=== PATIENT | female | born 1960 | race Caucasian/White ===

== ENCOUNTER → 2020-07-19 10:08 | Outpatient (CLI) | payer BC, SELFPAY ==
--- NOTE | ~2020-07-19 | MM_ITS ---
EXAMINATION: MM screening [facility] BI w cameron HISTORY: Screening mammogram TECHNIQUE: Craniocaudal and mediolateral oblique 3-D tomosynthesis images were obtained and synthetic 2-D images were generated. CAD analysis was submitted and interpreted. COMPARISON: , 08/28/2006 18 outside mammograms BREAST PARENCHYMAL COMPOSITION: There are scattered areas of fibroglandular density. FINDINGS: There is no evidence of suspicious mass, calcification, or architectural distortion to sugg est malignancy in either breast. There has been no suspicious interval change. IMPRESSION: 1. No mammographic evidence of malignancy. 2. Recommend routine screening mammography in one year. BI-RADS Category 1: Negative Reviewed, dictated and finalized at location A.
--- NOTE | ~2020-07-19 | DEXA_ITS ---
Bone Density Report Name: Katie Cotton Age: 59 Sex: Female Ethnicity: White Date of : 1960 Indication: osteopenia; asthma or emphysema; hysterectomy; postmenopausal Referring Provider: KALLIE GRACIA Study: Bone densitometry was performed. Exam Date: July 19, 2020 Accession number: [id number] Bone Density: Region BMD T-score Z-score Classification AP Spine (L1-L4) 0.912 -1.2 0.0 Osteopenia Femoral Neck (Left) 0.589 -2.3 -1.2 Osteopenia Total Hip (Left) 0.788 -1.3 -0.4 Osteopenia Femoral Neck (Right) 0.577 -2.4 -1.3 Osteopenia Total Hip (Right) 0.827 -0.9 -0.1 Normal Total Hip Mean 0.808 -1.1 -0.3 Osteopenia World Health Organization criteria for BMD impression classify patients as: Normal (T-score at or above -1.0), Osteopenia (T-score between -1.0 and -2.5), or Osteoporosis (T-score at or below -2.5). 10-year Fracture Risk(1): Major Osteoporotic Fracture 10.0% Hip Fracture 1.6% Reported Risk Factors: [place] (), Neck BMD=0.577, BMI=26.4 (1) FRAX(R) Version 3.08. Fracture probability calculated for an untreated patient. Fracture probability may be lower if the patient has received treatment. Previous Exams: Region Exam Age BMD T-score BMD Change BMD Change Date g/cm2 vs Baseline vs Previous AP Spine(L1-L4) 07/19/2020 59 0.912 -1.2 -0.011 -0.011 07/18/2018 57 0.923 -1.1 Total Hip(Left) 07/19/2020 59 0.788 -1.3 -0.039* -0.039* 07/18/2018 57 0.827 -0.9 Total Hip(Right) 07/19/2020 59 0.827 -0.9 0.004 0.004 07/18/2018 57 0.823 -1.0 *Denotes significance at 95% confidence level, LSC for AP Spine = 0.022 g/cm2, LSC for Total Hip = 0.027 g/cm2 Clinical Information Provided by Patient: Has used the following medications: Vitamin D Has the following medical conditions: Asthma or Emphysema, Hysterectomy Patient maximum height was 58.8 Menopause Age: 48 No regular weight bearing exercise Drinks caffeinated beverages Onset of menses at age 17 Number of children 2 Impression: The patient has low bone mass, based on the Right Femoral Neck T-score. The patient has an estimated ten-year risk of hip fracture of 1.6% and an estimated ten-year risk of major fracture of 10%, based on the WHO FRAX algorithm. The BMD for the Total Hip(Left) decreased, changing by -0.039 since the last DXA exam. Discussion: BONE DENSITY IS LOW AT ONE OR MORE SKELETAL SITES.
== END ==
PROVIDERS: Visit Provider Obstetrics & Gynecology Gynecology
DX: Z12.31 Encounter for screening mammogram for malignant neoplasm of breast (principal); Z78.0 Asymptomatic menopausal state; M85.88 Other specified disorders of bone density and structure, other site; M85.851 Other specified disorders of bone density and structure, right thigh; M85.852 Other specified disorders of bone density and structure, left thigh
CPT/HCPCS: 77063; 77067; 77080

== ENCOUNTER → 2021-11-24 10:35 | Outpatient (CLI) | payer BC, SELFPAY ==
--- NOTE | ~2021-11-24 | US_ITS ---
EXAMINATION: US pelvic complete w TV DATE: 11/24/2021 11:30 INDICATION: Right lower quadrant pain. Urinary frequency. Comparison:Ultrasound dated 07/18/2018 TECHNIQUE: Multiple transabdominal and endovaginal sonographic images of the pelvis performed. FINDINGS: The uterus is surgically absent. The right ovary measures 1.9 x 1 x 1.5 cm and the left is not visualized. No adnexal masses. There is no free fluid in the pelvis. There are no abnormal masses seen on either side. IMPRESSION: 1. Unremarkable pelvic ultrasound. Reviewed, dictated and finalized at location B.
== END ==
PROVIDERS: PCP Nurse Practitioner; Visit Provider Nurse Practitioner
DX: R10.11 Right upper quadrant pain (principal); R35.0 Frequency of micturition
CPT/HCPCS: 76830; 76856

== ENCOUNTER 2021-12-30 00:02 | Day surgery (SDC) | payer BC, SELFPAY ==
[2021-12-26 10:21] VITALS: BMI 25.1
[2021-12-30 06:27] VITALS: BP 136/85; PULSE 72; RESP 18; TEMP 36.5; O2SAT 100; BMI 25.7
[2021-12-30] MEDS: LACTATED RINGERS 1,000 ML 150 ML IV CONT (06:43)
--- NOTE | 2021-12-30 07:17 | P.PNAN_ITS ---
Anes - Initial Pre Proc Eval Procedure: Operation Date: 12/30/21 07:30 Proposed Procedures p Screening Colonoscopy - Avelino Carr MD Date/Time: 12/30/21 07:17 Surgeon: Avelino Carr MD Pre Op Diagnosis: family hx colon polyps Patient Data Age: 61 Gender: F Height: 1.5 m Weight: 57.9 kg Last Vital Signs Temp 97.7 F 12/30/21 06:27 Pulse 72 12/30/21 06:27 Resp 18 12/30/21 06:27 BP 136/85 12/30/21 06:27 Pulse Ox 100 12/30/21 06:27 O2 Del Method Room Air 12/30/21 06:27 Allergies Allergy/AdvReac Type Severity Reaction Status Date / Time doxycycline Allergy Mild MOUTH SORES Verified 12/30/21 06:25 Sulfa (Sulfonamide Allergy Mild MOUTH Verified 12/30/21 06:25 Antibiotics) SWELLING/MOUTH SORES Home Medications Medication Instructions Recorded Confirmed Type sodium,potassium,mag sulfates 17.5 See Rx Instructions PO .COMPLEX 10/26/21 12/21/21 Rx gram-3.13 gram-1.6 gram oral soln #354 mL (Suprep Bowel Prep Kit) rosuvastatin 10 mg tablet 10 mg PO DAILY 12/21/21 12/21/21 History Quercetin, Vit C, Bromelain 1 cap PO DAILY 12/26/21 12/26/21 History cholecalciferol (vitamin D3) 125 125 mcg PO DAILY 12/26/21 12/26/21 History mcg (5,000 unit) tablet (Vitamin D3) cyanocobalamin (vitamin B-12) 1,000 mcg PO DAILY 12/26/21 12/26/21 History 1,000 mcg tablet (Vitamin B-12) fexofenadine 180 mg tablet 180 mg PO DAILY 12/26/21 12/26/21 History green tea extract 500 mg capsule 500 mg PO DAILY 12/26/21 12/26/21 History selenium 200 mcg capsule 200 mcg PO DAILY 12/26/21 12/26/21 History zinc 50 mg tablet 50 mg PO DAILY 12/26/21 12/26/21 History Patient hx anesthesia problems: none Family hx anesthesia problems: none Results Review: All pre-operative results and documents have been reviewed as part of the pre- operative evaluation. PMFSH Social History Social History (System 05/12/20 @ 12:51 by Joy Alexandra) Smoking status: Never smoker Alcohol intake: never Substance use: never Substance use type: does not use Living arrangements: with family Spiritual care concerns: No Anes - Eval Final PreProcedure Day of Procedure 12/30/21 07:17 Patient weight: normal Heart: regular rate and rhythm Lungs: clear to auscultation Airway: Mallampati scale class II Neurological: alert and oriented Last oral intake: >/= 8 hours ASA classification: II Emergent: no Anesthetic plan: proceed Anesthesia type and monitoring: general GIVS and standard monitoring Results Review: All pre-operative results and documents have been reviewed as part of the pre- operative evaluation. Informed Consent: The patient's anesthetic plan and its attendant risks and benefits were discussed with the patient/family/POA. Questions were solicited and answers provided to the satisfaction of the patient/family/POA.
--- NOTE | 2021-12-30 07:26 | PM.HPGS ---
History of Present Illness History of Present Illness Consent: Risks, benefits, and alternatives have been discussed and questions answered. Patient agrees to proceed with procedure. Chief complaint: family hx colon polyps Narrative: Katie Cotton is a 61 year old female Presents for screening colonoscopy. Patient's current weight appetite and bowel movements are normal. Patient denies abdominal pain. She has had no bleeding. Family history is significant that her uncle had colon cancer in multiple cousins have had colon polyps. Patient presents today for screening colonoscopy. Review of Systems Review of Systems: Review of systems noncontributory. PMFSH Social History Social History (System 05/12/20 @ 12:51 by Joy Alexandra) Smoking status: Never smoker Alcohol intake: never Substance use: never Substance use type: does not use Living arrangements: with family Spiritual care concerns: No Meds Home Medications and Allergies Home Medications Medication Instructions Recorded Confirmed Type sodium,potassium,mag sulfates 17.5 See Rx Instructions PO .COMPLEX 10/26/21 12/21/21 Rx gram-3.13 gram-1.6 gram oral soln #354 mL (Suprep Bowel Prep Kit) rosuvastatin 10 mg tablet 10 mg PO DAILY 12/21/21 12/21/21 History Quercetin, Vit C, Bromelain 1 cap PO DAILY 12/26/21 12/26/21 History cholecalciferol (vitamin D3) 125 125 mcg PO DAILY 12/26/21 12/26/21 History mcg (5,000 unit) tablet (Vitamin D3) cyanocobalamin (vitamin B-12) 1,000 mcg PO DAILY 12/26/21 12/26/21 History 1,000 mcg tablet (Vitamin B-12) fexofenadine 180 mg tablet 180 mg PO DAILY 12/26/21 12/26/21 History green tea extract 500 mg capsule 500 mg PO DAILY 12/26/21 12/26/21 History selenium 200 mcg capsule 200 mcg PO DAILY 12/26/21 12/26/21 History zinc 50 mg tablet 50 mg PO DAILY 12/26/21 12/26/21 History Allergies Allergy/AdvReac Type Severity Reaction Status Date / Time doxycycline Allergy Mild MOUTH SORES Verified 12/30/21 06:25 Sulfa (Sulfonamide Allergy Mild MOUTH Verified 12/30/21 06:25 Antibiotics) SWELLING/MOUTH SORES Vital Signs Vital Signs - 24 hr 12/30/21 06:27 Temperature 97.7 F Pulse Rate 72 Respiratory Rate 18 Blood Pressure 136/85 Pulse Oximetry 100 Oxygen Delivery Room Air Exam Narrative: Physical exam reveals patient to be alert. Vital signs stable. HEENT exam is unremarkable. Patient is anicteric. Lungs are clear to auscultation and percussion. Heart is without murmur or extra sounds. Abdomen bowel sounds are present soft nontender with no organomegaly. Digital external rectal exam is normal. Assessment and Plan Assessment and plan (1) Encounter for screening colonoscopy: Code(s): Z12.11 - Encounter for screening for malignant neoplasm of colon Status: Acute Assessment and Plan: Patient presents today for screening colonoscopy. She does have a strong family history of colon cancer in her aunt: Multiple cousins. Plan for surveillance now and intervals in the future. Further recommendations will be given after endoscopy.
[2021-12-30 07:45] VITALS: BP 127/71; PULSE 69; RESP 18; O2SAT 98
[2021-12-30 07:55] VITALS: BP 121/79; PULSE 64; RESP 16; O2SAT 100
[2021-12-30 08:05] VITALS: BP 133/87; PULSE 62; RESP 18; O2SAT 100
== END 2021-12-30 08:11 | disposition home or self-care (01) ==
PROVIDERS: PCP Nurse Practitioner; Visit Provider Internal Medicine Gastroenterology
PROC: 0DJD8ZZ Inspection of Lower Intestinal Tract, Via Natural or Artificial Opening Endoscopic (ICD-10-PCS; CPT 45378; principal; 2021-12-30 07:30)
DX: Z12.11 Encounter for screening for malignant neoplasm of colon (principal); K64.8 Other hemorrhoids; K57.30 Diverticulosis of large intestine without perforation or abscess without bleeding
CPT/HCPCS: 45378; J2704; J7120

== ENCOUNTER → 2022-01-05 10:32 | Outpatient (CLI) | payer BC, SELFPAY ==
--- NOTE | ~2022-01-05 | MM_ITS ---
EXAMINATION: MM screening [facility] BI w cameron HISTORY: Screening mammogram TECHNIQUE: Craniocaudal and mediolateral oblique 3-D tomosynthesis images were obtained and synthetic 2-D images were generated. CAD analysis was submitted and interpreted. COMPARISON: 07/15/2020, 06/07/2018, 09/14/2016 bilateral screening mammogram examinations BREAST PARENCHYMAL COMPOSITION: There are scattered areas of fibroglandular density. FINDINGS: There is no evidence of suspicious mass, calcification, or architectural distortion to sugg est malignancy in either breast. There has been no suspicious interval change. IMPRESSION: 1. No mammographic evidence of malignancy. 2. Recommend routine screening mammography in one year. BI-RADS Category 1: Negative Reviewed, dictated and finalized at location A. E OVER ANNOUNCER
== END ==
PROVIDERS: PCP Nurse Practitioner; Visit Provider Obstetrics & Gynecology Gynecology
DX: Z12.31 Encounter for screening mammogram for malignant neoplasm of breast (principal)
CPT/HCPCS: 77063; 77067

== ENCOUNTER 2022-07-04 01:11 | Day surgery (SDC) | payer BC, SELFPAY ==
[2022-06-30 12:38] VITALS: BMI 26.2
[2022-07-04 09:00] VITALS: BP 151/89; PULSE 72; RESP 16; TEMP 36.4; O2SAT 98
[2022-07-04] MEDS: LACTATED RINGERS 1,000 ML 150 ML IV CONT (09:01)
--- NOTE | 2022-07-04 09:18 | WPDHPUPDATE1 ---
History and Physical Update Update Date/Time: 07/04/22 09:18 History and Physical has been reviewed, including an updated exam of the patient. There are NO changes in the patient's condition. Risks, benefits, and alternatives have been discussed and questions answered. Patient agrees to proceed with procedure.
--- NOTE | 2022-07-04 09:35 | WPDANESEPPF ---
Anes - Initial Pre Proc Eval Procedure: Operation Date: 07/04/22 10:15 Proposed Procedures p Esophagogastroduodenoscopy - Avelino Carr MD Date/Time: 07/04/22 09:35 Surgeon: Avelino Carr MD Pre Op Diagnosis: dysphagia Patient Data Age: 61 Gender: F Height: 1.5 m Weight: 60.1 kg Last Vital Signs Temp 97.6 F 07/04/22 09:00 Pulse 72 07/04/22 09:00 Resp 16 07/04/22 09:00 BP 151/89 H 07/04/22 09:00 Pulse Ox 98 07/04/22 09:00 O2 Del Method Room Air 07/04/22 09:00 Allergies Allergy/AdvReac Type Severity Reaction Status Date / Time doxycycline Allergy Mild MOUTH SORES Verified 07/04/22 08:58 Sulfa (Sulfonamide Allergy Mild MOUTH Verified 07/04/22 08:58 Antibiotics) SWELLING/MOUTH SORES Home Medications Medication Instructions Recorded Confirmed Type rosuvastatin 10 mg tablet 10 mg PO DAILY 12/21/21 07/04/22 History Quercetin, Vit C, Bromelain 1 cap PO DAILY 12/26/21 07/04/22 History cholecalciferol (vitamin D3) 125 125 mcg PO DAILY 12/26/21 07/04/22 History mcg (5,000 unit) tablet (Vitamin D3) cyanocobalamin (vitamin B-12) 1,000 mcg PO DAILY 12/26/21 07/04/22 History 1,000 mcg tablet (Vitamin B-12) fexofenadine 180 mg tablet 180 mg PO DAILY 12/26/21 07/04/22 History green tea extract 500 mg capsule 500 mg PO DAILY 12/26/21 07/04/22 History selenium 200 mcg capsule 200 mcg PO DAILY 12/26/21 07/04/22 History zinc 50 mg tablet 50 mg PO DAILY 12/26/21 07/04/22 History Patient hx anesthesia problems: none Family hx anesthesia problems: none Results Review: All pre-operative results and documents have been reviewed as part of the pre-operative evaluation. [facility] Social History Social History (System 07/03/22 @ 12:33 by Beverly Robertson) Smoking status: Never smoker Alcohol intake: never Substance use: never Substance use type: does not use Living arrangements: with family Spiritual care concerns: No Anes - Eval Final PreProcedure Day of Procedure 07/04/22 09:35 Patient weight: normal Heart: regular rate and rhythm Lungs: clear to auscultation Airway: Mallampati scale class III Neurological: alert and oriented Last oral intake: >/= 8 hours ASA classification: II Emergent: no Anesthetic plan: proceed Anesthesia type and monitoring: general GIVS and standard monitoring Results Review: All pre-operative results and documents have been reviewed as part of the pre-operative evaluation. Informed Consent: The patient's anesthetic plan and its attendant risks and benefits were discussed with the patient/family/POA. Questions were solicited and answers provided to the satisfaction of the patient/family/POA.
[2022-07-04 10:18] VITALS: BP 128/76; PULSE 70; RESP 17; O2SAT 98
[2022-07-04 10:28] VITALS: BP 121/74; PULSE 67; RESP 17; O2SAT 98
[2022-07-04 10:38] VITALS: BP 124/72; PULSE 68; RESP 17; O2SAT 99
== END 2022-07-04 10:55 | disposition home or self-care (01) ==
PROVIDERS: PCP Nurse Practitioner; Visit Provider Internal Medicine Gastroenterology
PROC: 0DJ08ZZ Inspection of Upper Intestinal Tract, Via Natural or Artificial Opening Endoscopic (ICD-10-PCS; CPT 43235; principal; 2022-07-04 10:15)
DX: K22.2 Esophageal obstruction (principal)
CPT/HCPCS: 43450; 43239; 87081; J2704; J7120

== ENCOUNTER → 2022-10-10 08:35 | Outpatient (CLI) | payer BC, SELFPAY ==
--- NOTE | ~2022-10-10 | CT_ITS ---
EXAMINATION: CT sinus wo con DATE: 10/10/2022 08:52 INDICATION: Acute recurrent pansinusitis. TECHNIQUE: Computed tomography (CT) of the paranasal sinuses was performed without intravenous contra st. Iterative reconstruction technique was employed. The dose-length product was 262.31 mGy-cm. COMPARISON: CT sinuses 03/04/18 FINDINGS: The frontal sinuses are clear. There is mild mucosal thickening in the anterior ethmoid sin uses. The sphenoid sinuses are clear. There is mild mucosal thickening in the maxillary sinuses. The nasal septum is at midline. The ostiomeatal units are patent. IMPRESSION: 1. Mild mucosal thickening in the paranasal sinuses. Reviewed, dictated and finalized at location A.
== END ==
PROVIDERS: PCP Nurse Practitioner; Visit Provider Otolaryngology
DX: J01.41 Acute recurrent pansinusitis (principal)
CPT/HCPCS: 70486

== ENCOUNTER → 2023-01-08 09:47 | Outpatient (CLI) | payer BC, SELFPAY ==
--- NOTE | ~2023-01-08 | MM_ITS ---
EXAMINATION: MM screening [facility] BI w cameron HISTORY: Screening mammogram TECHNIQUE: Craniocaudal and mediolateral oblique 3-D tomosynthesis images were obtained and synthetic 2-D images were generated. CAD analysis was submitted and interpreted. COMPARISON: 01/05/2022, 07/19/2020, 06/07/2018 BREAST PARENCHYMAL COMPOSITION: The breasts are almost entirely fatty. FINDINGS: No suspicious mass, calcification, or architectural distortion are identified in either ksenia ast to suggest malignancy. There has been no suspicious interval change. IMPRESSION: 1. No mammographic evidence of malignancy. 2. Recommend routine screening mammography in one year. BI-RADS Category 1: Negative Reviewed, dictated and finalized at location A. DRIVER
== END ==
PROVIDERS: PCP Obstetrics & Gynecology Gynecology; Visit Provider Obstetrics & Gynecology Gynecology
DX: Z12.31 Encounter for screening mammogram for malignant neoplasm of breast (principal)
CPT/HCPCS: 77063; 77067

== ENCOUNTER 2023-06-13 12:13 | Outpatient (CLI) | payer BC, SELFPAY ==
--- NOTE | ~2023-06-13 | MR_ITS ---
EXAMINATION: MR abdomen wo/w con DATE: 06/13/2023 13:01 INDICATION: Abnormal findings on diagnostic imaging and hematuria TECHNIQUE: Magnetic resonance imaging (MRI) of the abdomen was performed without and with 10 mL Multi lin intravenous contrast. Sequences included coronal T2-weighted SS-FSE, coronal and axial FS 2D-F IESTA, axial STIR FSE, axial T2-weighted SS-FSE, axial T2-weighted FS SS-FSE, axial diffusion-weighte d SE, axial dual-echo T1-weighted FSPGR, and axial and coronal T1-weighted LAVA. Postcontrast axial T 1-weighted LAVA images were obtained in a time course. Postcontrast coronal T1-weighted LAVA images w ere obtained. COMPARISON: None. FINDINGS: Heart size is normal. No pericardial or pleural effusion. 8 mm T2 hyperintense flash filling hemangio ma at the caudal tip of the right hepatic lobe. Small amount of dependently layering sludge within th e otherwise normal gallbladder. No intra or extrahepatic biliary ductal dilation. Pancreas, spleen an d bilateral adrenal glands are normal. 4 mm T2 hyperintense nonenhancing cyst at the posterior mid ri ght kidney. There is a 1.7 cm exophytic heterogeneously enhancing mass arising from the lower pole th e left kidney consistent with renal cell carcinoma. Visualized portion of the bowels are unremarkable . No pathologically enlarged abdominal or upper pelvic lymphadenopathy. Normal bone marrow signal thr oughout. IMPRESSION: 1. 1.7 similar heterogeneously enhancing exophytic mass at the lower pole of the left kidney consiste nt with renal cell carcinoma. No evident metastatic disease. Reviewed, dictated and finalized at location A. IMPRESSION: 1. 1.7 similar heterogeneously enhancing exophytic mass at the lower pole of th e left kidney consistent with renal cell carcinoma. No evident metastatic disea se.
== END 2023-06-13 12:14 ==
LOC: MICIMG 12:14
PROVIDERS: PCP Nurse Practitioner Family; Visit Provider Nurse Practitioner
DX: R93.429 Abnormal radiologic findings on diagnostic imaging of unspecified kidney (principal); R31.9 Hematuria, unspecified
CPT/HCPCS: 74183; A9577

== ENCOUNTER 2024-01-11 10:09 | Outpatient (CLI) | payer BC, SELFPAY ==
--- NOTE | ~2024-01-11 | MM_ITS ---
EXAMINATION: MM screening [facility] BI w cameron HISTORY: Screening mammogram TECHNIQUE: Craniocaudal and mediolateral oblique 3-D tomosynthesis images were obtained and synthetic 2-D images were generated. CAD analysis was submitted and interpreted. COMPARISON: 01/08/2023, 01/05/2022, 07/19/2020 BREAST PARENCHYMAL COMPOSITION:Not Dense. There are scattered areas of fibroglandular density. FINDINGS: No suspicious mass, calcification, or architectural distortion are identified in either ksenia ast to suggest malignancy. There has been no suspicious interval change. IMPRESSION: No mammographic evidence of malignancy. Recommend routine screening mammography in one year. BI-RADS Category 1: Negative Reviewed, dictated and finalized at location . O CONSULTANT
== END 2024-01-11 10:10 | disposition home or self-care (01) ==
LOC: MICIMG 10:10
PROVIDERS: PCP Obstetrics & Gynecology Gynecology; Visit Provider Obstetrics & Gynecology Gynecology
DX: Z12.31 Encounter for screening mammogram for malignant neoplasm of breast (principal)
CPT/HCPCS: 77063; 77067

== ENCOUNTER 2024-04-14 01:16 | Day surgery (SDC) | payer BC, SELFPAY ==
[2024-03-27 14:51] VITALS: BMI 25.6
--- OUTSIDE RECORDS SUMMARY | 2024-04-14 01:19 | XMS_ITS | Encounter Summary ---
Author Organization [facility] Address [address] [place] [id number] Care Team Providers Care Cloth Mercerizing Supervisor Name Role Phone Mazin Lopez MD Primary Care Provider [phone] Leanna Kc Primary Care Provider [phone] Encounter Details Date Type Department Care Team (Late st Contact Info) Description 12/30/2016 Abstract [facility] CONVERSION [place], [place] [id number] , Generic Conversion, Social History Tobacco Use Types Packs/Day Years Used Date Smoking Tobacco: Never Assessed Comments Unknown Sex and Gender Information Value Date Recorded Sex Assigned at Female 03/26/2024 7:43 AM WATCH REPAIR PERSON Legal Sex Female 7:31 PM CDT Gender Identity Not on file Sexual Orientation Straight 11/12/2021 9: 54 AM CDT documented as of this encounter Plan of Treatment Upcoming Encounters Date Type Department Care Team (Late st Contact Info) Description 10/02/2024 2:15 PM CDT Office Visit [facility] [place] [id number] Jeremy Sanchez, KIMBERLY Three [address] [phone] documented as of this encounter Visit Diagnoses Not on filedocumented in this encounter Additional Health Concerns Infection Onset Date Last Indicated Resolved Time COVID-19 Rule Out 08/12/2020 08/12/2020 08/13/2020 2:40 PM CDT COVID-19 Rule Out 12/07/2020 12/07/2020 12/07/2020 3:22 PM CDT COVID-19 Rule Out 12/07/2020 12/07/2020 12/08/2020 7:50 PM CDT COVID-19 Rule Out 09/06/2021 09/07/2021 09/07/2021 6:52 PM CDT COVID-19 Rule Out 09/19/2021 09/19/2021 09/19/2021 4:55 PM CDT COVID-19 Confirmed 09/19/2021 09/19/2021 12:32 AM CDT COVID-19 Rule Out 11/26/2021 11/26/2021 11/26/2021 9:09 AM CDT COVID-19 Rule Out 07/16/2023 07/16/2023 07/16/2023 12:23 PM CDT documented as of this encounter Care Teams Cloth Mercerizing Supervisor Relationship Specialty Start Date End Date Mazin Lopez MD [address] [place] [id number] PCP - General 02/10/16 05/07/19 Leanna Kc FNP [address] [place] [address] PCP - General Nurse Practitioner Family 05/08/19 documented as of this encounter
--- OUTSIDE RECORDS SUMMARY | 2024-04-14 01:19 | XMS_ITS | Clinical Summary ---
Author Organization [facility] Address [address] [place] [address] Phone Care Team Providers Care Autism Teacher Name Role Phone Unavailable Primary Care Provider Unavailabl e Allergies Active Allergy Reactions Criticality Noted Date Comments Doxycycline Unknown 02/08/2024 Medications No known medications Encounters Date Type Department Care Team Description 02/08/2024 11:02 AM EST - 02/08/2024 11:42 AM EST Emergency [facility] [address] [place] [address] Christo Robb MD Viral pharyngitis (Primary Dx) Discharge Disposition: Home or Self Care from Last 3 Months Social History Tobacco Use Types Packs/Day Years Used Date Smoking Tobacco: Never Assessed Feeling Safe Answer Date Recorded Are you in a relationship wi th someone who hurts you emotionally and/or physically? No 02/08/2024 Comments Unknown Sex and Gender Information Value Date Recorded Sex Assigned at Not on file Legal Sex Female 9:45 AM SHELLFISH GROWER Gender Identity Not on file Sexual Orientation Not on file Last Filed Vital Signs Vital Sign Reading Time Taken Comments Blood Pressure 163/98 02/08/2024 11:13 AM EST Pulse 86 02/08/2024 11:13 AM EST Temperature 36.5 C (97.7 F) 02/08/2024 11:13 AM EST Respiratory Rate 18 02/08/2024 11:13 AM EST Oxygen Saturation 99% 02/08/2024 11:13 AM EST Inhaled Oxygen Concentration - - Weight - - Height - - Body Mass Index - - Plan of Treatment Health Maintenance Due Date Last Done Comments CERVICAL CANCER SCREENING 1992 FIT-DNA Q 3 years 07/24/2007 FIT/FOBT Q 1 year 07/24/2007 Flex Sig/CT Colonography Q 5 years 07/24/2007 ZOSTER VACCINE (1 of 2) 2012 BREAST CANCER SCREENING 06/08/2019 06/08/19 19, 08/28/2016, 10/27/2014, Additional history exists INFLUENZA VACCINE (#1) 2023 11/19/2019, 2018 COVID-19 Vaccine (3 - 2023-2 5 season) 2023 04/28/2020, 03/31/2020 DTAP/TDAP/TD VACCINES (2 - T d or Tdap) 11/15/2031 11/14/2021 COLORECTAL SCREENING 12/31/2031 12/30/2021 Colorectal Cancer Screening 12/31/2031 RSV VACCINE (60+ or ) (1 - 1-dose 75+ series) 2037 Procedures Procedure Name Priority Date/Time Associated Diagnosis Comments THROAT CULTURE Stat 02/08/2024 11:36 AM EST POC RAPID STREP A Stat 02/08/2024 11: 22 AM EST from Last 3 Months Results * THROAT CULTURE (02/08/2024 11:36 AM EST) THROAT CULTURE Normal respiratory jon isolated. No beta-hemolytic Streptococcus isolated. 02/10/2024 8:44 AM EST [facility] Upper Respiratory SPECIMEN FROM THROAT / Unknown Collection / Unknown 02/08/2024 11:36 AM EST 02/08/2024 8:15 PM EST us Christo Robb MD MICROBIOLOGY - GENERAL ORDERAB LES Final Result [facility] CLIA# [id number] [address] [place] [address] [place] [address] * POC RAPID STREP A ANTIGEN (02/08/2024 11:22 AM EST) RAPID STREP Negative Negative 02/08/2024 11:29 AM EST [facility] [place] Comment:Group A Strep Cultur e ([id number]) is recommended for negative Strep Screen results. Upper Respiratory SPECIMEN FROM THROAT / Unknown 02/08/2024 11:22 AM EST 02/08/2024 11:29 AM EST us Christo Robb MD POINT OF CARE TESTING Final Re [facility]andlert [facility] [place] GOLDBERG# [id number] [address] [place] [address] from Last 3 Months Insurance [facility] [id number] PPO
--- OUTSIDE RECORDS SUMMARY | 2024-04-14 01:19 | XMS_ITS | Referral Summary ---
Author Organization [facility] Address [address] [place] [address] Care Team Providers Care Conservation Technician Name Role Phone Leanna Kc NP Primary Care Provider Navjot Eubanks MD Unavailable [phone] Allergies Active Allergy Reactions Criticality Noted Date Comments Doxycycline Other (See comments) Low 07/21/2008 Mouth sores Pravastatin Other (See comments) Low 01/07/2015 Sulfa Unknown Medium 06/21/2023 Medications rosuvastatin (CRESTOR) 10 mg tablet Take 1 tablet (10 mg total) by mouth nightly Active ascorbic acid (ascorbic acid with andre hips) 500 mg tablet,chewable Take by mouth every morning Active cholecalciferol (VITAMIN D-3) 2000 unit tablet Take by mouth every morning Active calcium carb/mag oxide/Cu/zinc (calcium-magnes gjf-puqhxx-qged ) tablet Take by mouth every morning Active acetaminophen (TYLENOL) 325 mg tablet Take 2 tablets (650 mg total) by mouth every 6 (six) hours as needed for pain Active HYDROcodone-susie taminophen (NORCO) 5-325 mg per tabletIndicatio ns:Pain Take 1 tablet by mouth every 6 (six) hours as needed for pain 12 tablet 07/10/2023 Active ibuprofen (ADVIL,MOTRIN) 600 mg tablet Take 1 tablet (600 mg total) by mouth every 6 (six) hours as needed for pain 07/10/2023 Active Active Problems Problem Noted Date Diagnosed Date Renal mass 07/09/2023 Kidney mass 06/21/2023 Social History Tobacco Use Types Packs/Day Years Used Date Smoking Tobacco: Never Smokeless Tobacco: Never Tobacco Cessation:Counseling Given: Not Answered AUDIT-C Answer Date Recorded Q1: How often do you have a drink containing alcohol? Never 06/29/2023 Q2: How many drinks containi ng alcohol do you have on a typical day when you are drinking? Patient does not drink Q3: How often do you have si x or more drinks on one occasion? Never 06/29/2023 Personal Safety Answer Date Recorded Have you ever been in or are you currently in a harmful physical or emotional relationship or is someone making you feel afraid or unsafe? 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 Gender Identity Not on file Sexual Orientation Not on file Last Filed Vital Signs Vital Sign Reading Time Taken Comments Blood Pressure 117/68 07/10/2023 7:27 AM CDT Pulse 54 07/10/2023 7:27 AM CDT Temperature 36.8 C (98.3 F) 07/10/2023 7:27 AM CDT Respiratory Rate 16 07/10/2023 7:27 AM CDT Oxygen Saturation 97% 07/10/2023 7:27 AM CDT Inhaled Oxygen Concentration - - Weight 54.8 kg (120 lb 13 oz) 07/09/2023 11:55 A M CDT Height 149.9 cm (4' 11 ) 07/09/2023 11:55 AM CDT Body Mass Index 24.4 07/09/2023 11:55 AM CDT Plan of Treatment Not on file Procedures Procedure Name Priority Date/Time Associated Diagnosis Comments SCREENING MAMMOGRAM BILATERAL W JERRY Schedule Routine, Read Routine (OP Routine) 06/07/2018 10:18 AM CDT Encounter for screening mammogram for malignant neoplasm of breast from Last 3 Months or Most Recently Relevant to Health Maintenance Results * Screening Mammogram Bilateral W Jerry (06/07/2018 10:18 AM CDT) Anatomical Region Laterality Modality Breast Bilateral Digital Radiogra phy Narrative 06/11/2018 9:10 AM CDT Mammogram Technique: Bilateral Digital Breast Tomosynthesis, Bilateral C-view 2D Screening mammogram. Views obtained: bilateral craniocaudal and bilateral mediolateral oblique. Computer Aided Detection was performed. Mammogram Findings: The present examination has been compared to prior imaging studies performed at [facility] on 07/01/2013, 10/27/2014 and 08/28/2016. There are scattered areas of fibroglandular density. There is no suspicious abnormality in either breast. Impression: Annual screening mammography is recommended. OVERALL FINAL ASSESSMENT: BI-RADS CATEGORY 1: Negative. Procedure Note Lenore Rabago MD - 06/11/2018 Mammogram Technique: Bilateral Digital Breast Tomosynthesis, Bilateral C-view 2D Screening mammogram. Views obtained: bilateral craniocaudal and bilateral mediolateral oblique. Computer Aided Detection was performed. Mammogram Findings: The present examination has been compared to prior imaging studies performed at [facility] on 07/01/2013, 10/27/2014 and 08/28/2016. There are scattered areas of fibroglandular density. There is no suspicious abnormality in either breast. Impression: Annual screening mammography is recommended. OVERALL FINAL ASSESSMENT: BI-RADS CATEGORY 1: Negative. Celia Allen MD IMG MAMMO PROCEDURES Fin al Result from Last 3 Months or Most Recently Relevant to Health Maintenance Insurance [facility] Address: [phone] [place] [address] ANTHEM ACCESS ANTHEM ACCESS Advance Directives For more information, please contact: [phone] * Full Code (Latest Code Status on File) Date Activated Date Inactivated Comments 07/09/2023 6:33 PM 07/10/2023 5:45 PM Care Teams Conservation Technician Relationship Specialty Start Date End Date Leanna Kc NP [address] [place] [address] [address] [place], [place] [address] PCP - General Pediatrics 07/09/23 [place] [id number] SELF [address] [place] [address] Consulting Physician Urology 07/10/23
--- OUTSIDE RECORDS SUMMARY | 2024-04-14 01:19 | XMS_ITS | Clinical Summary ---
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 Gender Identity Not on file Sexual Orientation Not on file Obstetrics History Last Filed Vital Signs Vital Sign Reading [...] 07/09/2023 11:55 AM CDT Plan of Treatment Health Maintenance Due Date Last Done Comments Colon Cancer Screening-Colonoscopy 1962 Depression Screening 1962 Hepatitis C Screening 1962 Hepatitis B Screening 1980 Regular Well Visit/Exam 18-64 1980 Zoster Vaccine (1 of 2) 2012 Breast Cancer Screening-Mammogram 06/08/2019 06/07/2018, 08/28/2016, 10/27/2014, Additional history exists Pneumococcal vaccine <65 (2 of 2 - PCV) 12/11/2019 12/10/2018, 12/12/2017, 01/04/2006 Covid-19 Vaccine (5 - 2023-2 5 season) 2023 01/08/2022, 12/30/2020, 04/28/2020, Additional history exists Influenza Vaccine (#1) 2023 3, 12/11/2021, 12/02/2020, Additional history exists DTaP/Tdap/Td Vaccine (2 - Td or Tdap) 11/15/2031 11/14/2021, 11/12/2000 Procedures Procedure Name Priority Date/Time Associated Diagnosis [...] compared to prior imaging studies performed at [facility] on 07/01/2013, 10/27/2014 and 08/28/2016. There are [...] compared to prior imaging studies performed at [facility] on 07/01/2013, 10/27/2014 and 08/28/2016. There are scattered areas of fibroglandular density. There is no suspicious abnormality in either breast. Impression: Annual screening mammography is recommended. OVERALL FINAL ASSESSMENT: BI-RADS CATEGORY 1: Negative. us Celia Allen MD IMG MAMMO PROCEDURES Fin al Result from Last 3 Months or Most Recently Relevant to Health Maintenance Insurance [facility] ACCESS [facility] ACCESS [facility] ACCESS Advance Directives For more information, please contact: [phone] * Full Code (Latest Code Status on File) Date Activated Date Inactivated Comments 07/09/2023 6:33 PM 07/10/2023 5:45 PM Care Teams Cell Coverer Relationship Specialty Start Date End Date Leanna Kc NP [address] [place] [address] [address] [place], [place] [phone] PCP - General Pediatrics 07/09/23 [place] [id number] [place] [address] Consulting Physician Urology 07/10/23
--- OUTSIDE RECORDS SUMMARY | 2024-04-14 01:19 | XMS_ITS | Clinical Summary ---
Author Organization [facility] Address [facility] [place] [address] Care Team Providers Care Tooler Name Role Phone Leanna Kc PAINTER SET Primary Care Provider [phone] Allergies Active Allergy Reactions Criticality Noted Date Comments Doxycycline Other (see comment) Low 07/21/2008 Mouth sores Pravastatin Other (see comment) Low 01/07/2015 Sulfa Antibiotics Unknown Medium 06/29/2011 Medications CPAP DEVICE, DME,Indications:O bstructive sleep apnea Smart CPAP. Low 5. High 15. G 47.33 obstructive sleep apnea 1 Device 020 Active Ascorbic Acid (VITAMIN C) 100 MG tablet Take 1 tablet (100 mg total) by mouth daily. Active zinc gluconate 50 MG Tab Take 1 tablet (50 mg total) by mouth daily. Active biotin 300 MCG Tab Take 1 tablet (300 mcg total) by mouth daily. Active vitamin D3, cholecalciferol, 5000 UNITS capsule Take 1 capsule (125 mcg total) by mouth daily. Active PREMARIN 0.625 MG/GM vaginal cream INSERT 0.5G VAGINALLY TWICE PER WEEK DIRECTED 023 Active ALPRAZolam (XANAX) 0.25 MG tabletIndications :Anxiety about health Take one at HS prn for anxiety/sleep 10 tablet 024 Active Additional Information Patient not taking.Reported on 04/03/2024 acetaminophen (TYLENOL) 325 MG tablet Take 2 tablets (650 mg total) by mouth every 6 (six) hours as needed. Active ibuprofen (MOTRIN) 600 MG tablet Take 1 tablet (600 mg total) by mouth every 6 (six) hours as needed. 024 Active magnesium oxide (MAG-OX) 400 (240 Mg) MG tablet Take 1 tablet (400 mg total) by mouth daily. Active cefdinir (OMNICEF) 300 MG Cap capsuleIndication s:Acute recurrent frontal sinusitis Take 1 capsule (300 mg total) by mouth 2 (two) times daily. 20 capsule Active Additional Information Patient not taking.Reported on 04/03/2024 rosuvastatin (CRESTOR) 10 MG tabletIndications :Mixed hyperlipidemia TAKE 1 TABLET BY MOUTH EVERYDAY AT BEDTIME 30 tablet Active Additional Information Patient not taking.Reported on 04/03/2024 dextromethorphan- guaiFENesin ER (MUCINEX DM) 30-600 MG TABLET SR 12 HR 12 hr tabletIndications :Acute cough,Fluid level behind tympanic membrane of both ears,Acute viral laryngitis Take 1 tablet by mouth every 12 (twelve) hours as needed. 28 tablet Active methylPREDNISolon e, ROBERTA, (MEDROL DOSEPAK) 4 MG tabletIndications :Acute cough,Acute sore throat,Fluid level behind tympanic membrane of both ears,Acute viral laryngitis Take 1 tablet (4 mg total) by mouth daily. 6 TABLETS ON DAY ONE, 5 TABLETS DAY TWO, 4 TABLETS DAY THREE, 3 TABLETS DAY FOUR, 2 TABLETS DAY FIVE, AND 1 TABLET DAY SIX 1 each Active Additional Information Patient not taking.Reported on 04/03/2024 Krill Oil 500 MG Cap Take 1 capsule by mouth daily. Active omeprazole (PRILOSEC) 40 MG capsule Take 1 capsule (40 mg total) by mouth daily. Active diphenhydramine-m aalox-lidocaine viscous (MAGIC MOUTHWASH) (MAGIC MOUTHWASH) oral suspensionIndicat ions:Mouth pain swish gargle and spit 10 ml every 6 hours as needed 200 mL 1 Active Additional Information Patient not taking.Reported on 04/03/2024 nystatin (MYCOSTATIN) 541823 UNIT/ML suspension Take by mouth 4 (four) times daily. Active evolocumab (REPATHA SURECLICK) 140 MG/ML injection (PEN) Inject 1 mL (140 mg total) into the skin every 14 (fourteen) days. 6 Pen 3 02/10/2 025 Active evolocumab (REPATHA SURECLICK) 140 MG/ML injection (PEN) Inject 1 mL (140 mg total) into the skin every 14 (fourteen) days. 2 Pen 3 025 2024 Discontinued evolocumab (REPATHA SURECLICK) 140 MG/ML injection (PEN) Inject 1 mL (140 mg total) into the skin every 14 (fourteen) days. 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 Coccyx pain 05/21/2018 Elevated platelet count 05/21/2018 Hypercholesterolemia 04/25/2018 Osteoarthrosis 11/06/2016 Overview (01/01/2018): Date Onset: 11/06/2016 Sciatica of right side 08/04/2016 Overview (01/01/2018): Date Onset: 08/04/2016 Chronic sinusitis 02/25/2016 Hyperlipidemia 09/04/2011 Overview (01/01/2018): Date Onset: 06/30/2011 Resolved Problems Problem Noted Date Diagnosed Date Resolved Date Snoring 01/13/2019 08/09/2019 Encounters Date Type Department Care Team Description 04/07/2024 Telephone [facility], [address] [address] [place]ka Tan, [place] Refill Request ([facility] - speciality pharmacy) 04/03/2024 2:45 PM FIELD SERVICE MANAGER Office Visit [facility] [place] [address] Bijan Lord MD Follow Up (Hyperlipidemia ) 04/03/2024 Travel 03/26/2024 Travel 03/13/2024 1:58 PM FIELD SERVICE MANAGER - 03/13/2024 11:59 PM FIELD SERVICE MANAGER Hospital Encounter [facility] [address] [place] [address] Leanna Kc, PAINTER SET Discharge Disposition: Home or Self Care (Routine Discharge) 03/13/2024 9:20 AM FIELD SERVICE MANAGER Office Visit [address] [place] [address] Leanna Kc, PAINTER SET URI (Voice is hoarse, a couple sores in mouth, throat irritated, chest congestion, going on for 5 weeks, taking zyrtec, mucinex) 03/13/2024 Travel 02/28/2024 Scan [facility] [employer] INFO SRVCS Scanned, [facility] 02/21/2024 4:00 PM FIELD SERVICE MANAGER Office Visit [address] [place] [address] Leanna Kc, PAINTER SET Joint Pain (Hands. This started 8 years ago, but has progressively gotten worse.); Follow Up (Follow up sinusitis and laryngitis ) 02/21/2024 Travel 02/16/2024 9:20 AM FIELD SERVICE MANAGER Office Visit [address] [place] [address] Harsh Jones MD Follow Up (Follow up last visit for cough. Productive cough (green), shortness of breath, fatigue, sore throat, ear pain, headache, fever. ) 02/16/2024 Travel 02/13/2024 5:00 PM FIELD SERVICE MANAGER Office Visit [address] [place] [address] Leanna Kc, PAINTER SET Cough (Pt is here for a ongoing cough and sore throat, she has been sick for the last 4 weeks and doesn't feel like she has gotten any better, she feels like it is on her chest. ) 02/13/2024 Travel 01/17/2024 Orders Only [address] [place] [address] Leanna Kc FNP 01/16/2024 8:40 AM FIELD SERVICE MANAGER Laboratory Only [facility] [address] [place] [address] Keon Alicea MD 01/16/2024 8:00 AM FIELD SERVICE MANAGER Office Visit [facility] [address] [facility] [place] [address] Leanna Kc FNP Cough (Pt is here for a cough, headache, drainage, scratchy throat, Pt symptoms started a week ago, she took a covid test over the weekend and it was negative. ) 01/16/2024 Travel from Last 3 Months Immunizations Name Administration Dates Next Due Flucelvax 6 Months+ (Prefill ed Syringe) 12/10/2018,12/31/2016 Fluzone 6 Months+ Quad (0.5 mL Prefilled Syringe) 11/19/2019 Influenza (Generic) 12/21/2023, 0,12/12/2017,2014,12/11/2013 Influenza Adult (Generic) 01/01/2023,,12/02/2020,2019,12/10/2018,12/31/2016 MODERNA COVID-19 (12+) MRNA, LNP-S, PF, 100 MCG/ 0.5 ML DOSE 04/28/2020,03/31/2020 Pneumococcal (Pneumovax 23) 12/10/2018, 8 Tdap (Generic) 11/14/2021 Family History Medical History Relation Comments CHF Brother Diabetes Father Hyperlipidemia Father Hypertension Father Heart Disease Mother Hyperlipidemia Mother Hypertension Mother hypothyroid Mother Asthma Other Heart Disease Other colon polyp Other Relation Status Comments Brother Father Mother Other Social History Tobacco Use Types Packs/Day Years Used Date Smoking Tobacco: Never Passive Smoke Exposure: Never Smokeless Tobacco: Never Tobacco Cessation:Counseling Given: No Comments:Pcp to consumer credit counselor Alcohol Use Standard Drinks/Week Comments No 0 (1 standard drink = 0.6 oz pur e alcohol) AUDIT-C Answer Date Recorded Frequency of Alcohol Consumption Never 01/01/2018 Average Number of Drinks Not on file 018 Frequency of Binge Drinking Not on file 07/2017 PHQ-2 Answer Date Recorded Patient Health Questionnaire-2 Score 0 09/08/2023 Comments No Sex and Gender Information Value Date Recorded Sex Assigned at Female 03/26/2024 7:43 AM FIELD SERVICE MANAGER Legal Sex Female 7:31 PM CDT Gender Identity Not on file Sexual Orientation Straight 11/12/2021 9: 54 AM CDT 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 Not on file Not on file Not on file Last Filed Vital Signs Vital Sign Reading Time Taken Comments Blood Pressure 148/92 04/03/2024 2:47 PM FIELD SERVICE MANAGER Pulse 80 04/03/2024 2:46 PM FIELD SERVICE MANAGER Temperature 36.7 C (98 F) 03/13/2024 9:18 AM FIELD SERVICE MANAGER Respiratory Rate 16 04/03/2024 2:46 PM FIELD SERVICE MANAGER Oxygen Saturation 96% 04/03/2024 2:46 PM FIELD SERVICE MANAGER Inhaled Oxygen Concentration - - Weight 60.1 kg (132 lb 6.4 oz) 04/03/2024 2:46 P M FIELD SERVICE MANAGER Height 149.9 cm (4' 11 ) 04/03/2024 2:46 PM FIELD SERVICE MANAGER Body Mass Index 26.74 04/03/2024 2:46 PM FIELD SERVICE MANAGER Plan of Treatment Upcoming Encounters Date Type Department Care Team (Late st Contact Info) Description 10/02/2024 2:15 PM CDT Office Visit [facility] [place] [address] Jeremy Sanchez NP [address] [address] Health Maintenance Due Date Last Done Comments Kidney Health Evaluation 1962 Annual Physical 1965 Diabetes: Retinopathy Eye Exam 1980 Hepatitis C 1980 Zoster Vaccines (1 of 2) 2012 Pneumococcal Vaccine: Pediatrics (0 to 5 Years) and At-Risk Patients (6 to 64 Years) (2 of 2 - PCV) 12/11/2019 12/10/2018, 12/12/2017 Mammogram Screening 06/07/2020 06/07/2018 RSV Immunization or 60+ Years (1 - Risk 60-74 years 1-dose series) 2022 COVID-19 Vaccine ( season) 2023 01/08/2022, 12/30/2020, 04/28/2020, Additional history exists PHQ-2 (Physician [place]) 02/27/2024 09/08/2023 Hemoglobin A1C 07/15/2024 01/16/2024, 04/26, 04/27/2023, Additional history exists Lipid Panel 09/23/2024 09/24/2023, 04/26, 03/04/2020, Additional history exists DTaP, Tdap and Td Vaccines (2 - Td or Tdap) 11/15/2031 11/14/2021 Colorectal Cancer Screening Colonoscopy (10 Years) 12/31/2031 12/30/2021, 01/22/2017 Influenza Adult Completed 12/21/2023, 07/2022, 12/11/2021, Additional history exists Meningococcal B Vaccine Aged Out No l onger eligible based on patient's age to complete this topic Meningococcal Vaccine Aged Out No maggy angela eligible based on patient's age to complete this topic RSV Immunizations Under 20 Months Aged Out No longer eligible based on patient's age to complete this topic Procedures Procedure Name Priority Date/Time Associated Diagnosis Comments VITAMIN D, 25 OH TOTAL Routine 03/26/2024 7:45 AM FIELD SERVICE MANAGER [facility] LIPID W/CALC LDL Routine 03/26/2024 7:45 AM FIELD SERVICE MANAGER STREP A, DNA Routine 03/13/2024 10:30 AM FIELD SERVICE MANAGER Sinus drainage Acute sore throat STREP A RAPID Routine 03/13/2024 Sinus drainage Acute sore throat STREP A RAPID Routine 02/16/2024 Fever, unspecified fever cause Acute cough Acute sore throat [facility] HEMOGLOBIN A1C Routine 01/16/2024 8:50 AM FIELD SERVICE MANAGER LIPID PANEL Routine 09/24/2023 8:30 AM CDT Dyslipidemia COLONOSCOPY GENERIC (SCAN ORDER) 12/30/2021 from Last 3 Months or Most Recently Relevant to Health Maintenance Results * VITAMIN D, 25 OH TOTAL (03/26/2024 7:45 AM FIELD SERVICE MANAGER) Pathologist [facility] VITAMIN D 25 HYDROXY S/P/B 57 30 - 100 NG/ML 03/26/2024 10:46 AM FIELD SERVICE MANAGER [facility] 03/26/2024 7:45 AM FIELD SERVICE MANAGER us Keon Alicea MD LABORATORY Final Result [facility] [address] [place] [address], [place] [phone] * (ABNORMAL) LIPID PROFILE (03/26/2024 7:45 AM FIELD SERVICE MANAGER) Pathologist [facility] CHOLESTEROL 322(H) <200 MG/DL 03/26/2024 10:47 AM [facility] TRIGLYCERIDES 198(H) <150 MG/DL 03/26/2024 10:47 AM [facility] HDL 49 >40.0 MG/DL 03/26/2024 10:47 AM [facility] LDL (CALCULATED) 233(H) <100 MG/DL 03/26/2024 10:47 AM [facility] NON HDL CHOLESTEROL 273(H) <130 MG/DL 03/26/2024 10:47 AM [facility] CHOL/HDL RATIO 6.6(H) 0.0 - 4.5 03/26/2024 10:47 AM [facility] VLDL CALCULATION 40 5 - 55 MG/DL 03/26/2024 10:47 AM [facility] LIPID INTERPRETATION 03/26/2024 10:47 AM [facility] Comment: NIH CONCENSUS REPORT RECOMMENDATIONS: ADULT CHILD LOW RISK: CHOLESTEROL <200 <170 TRIGLYCERIDE <150 --- HDL >=60 --- LDL <100 <110 BORDERLINE: CHOLESTEROL 200-239 170-199 TRIGLYCERIDE 150-199 --- HDL 40-59 --- LDL 100-159 110-129 HIGH RISK: CHOLESTEROL >=240 >=200 TRIGLYCERIDE >=200 --- HDL <40 --- LDL >=160 >=130 03/26/2024 7:45 AM FIELD SERVICE MANAGER Keon Alicea MD LABORATORY Final Result Performing Organization Address City/[facility]/ZIP Co de Phone Number [facility] [address] [place] [address], [place] [phone] * STREP A, DNA ASSAY (for Confirmation only) (03/13/2024 10:30 AM FIELD SERVICE MANAGER) Pathologist [facility] SPECIMEN SOURCE THROAT 5 1:59 PM FIELD SERVICE MANAGER [facility] STREP A MOLECULAR NEGATIVE NEGATIVE 025 9:23 PM FIELD SERVICE MANAGER [facility] Comment:SPECIMEN NEGATIVE FO R GROUP A STREPTOCOCCUS BY DNA AMPLIFICATION STRUCTURE OF ANTERIOR PORTION OF NECK / Unknown 03/13/2024 10:30 AM FIELD SERVICE MANAGER Leanna Kc PAINTER SET MICROBIOLOGY - GENERAL ORDERA BLES Final Result Performing Organization Address City/[facility]/ZIP Co de Phone Number [facility] [address] [place] [address], [place] [phone] [facility] [place] [address], * STREP A RAPID (03/13/2024) Only the most recent of2 resultswithin the time period is included. RAPID STREP TEST NEGATIVE NEGATIVE -HEALTHCARE (201)[place] Internal Control: VALID VALID -HEALTHCARE (201[facility] STRUCTURE OF ANTERIOR PORTION OF NECK / Unknown 03/13/2024 Leanna Kc PAINTER SET MICROBIOLOGY - GENERAL ORDERA BLES Final Result [facility] (201), [address] [address], * (ABNORMAL) HEMOGLOBIN A1C (01/16/2024 8:50 AM FIELD SERVICE MANAGER) HGB A1C 5.8(H) <5.7 % 01/16/2024 4:20 PM FIELD SERVICE MANAGER [facility] Comment: ADA GUIDELINES 2010 5.7 TO 6.4% INCREASED RISK OF DIABETES > OR = 6.5% CONSISTENT WITH DIABETES ESTIMATED AVG GLUCOSE 120 mg/dL 01/16/2024 4:20 PM FIELD SERVICE MANAGER [facility] 01/16/2024 8:50 AM FIELD SERVICE MANAGER Keon Alicea MD LABORATORY Final Result [facility] [address] [place] [address], [place] [phone] * (ABNORMAL) LIPID PANEL (09/24/2023 8:30 AM CDT) CHOLESTEROL 335(H) <200 MG/DL 09/24/2023 2:18 PM CDT [facility] TRIGLYCERIDES 166(H) <150 MG/DL 09/24/2023 2:18 PM CDT [facility] HDL 49 >40.0 MG/DL 09/24/2023 2:18 PM CDT [facility] LDL (CALCULATED) 253(H) <100 MG/DL 09/24/2023 2:18 PM CDT [facility] NON HDL CHOLESTEROL 286(H) <130 MG/DL 09/24/2023 2:18 PM CDT [facility] CHOL/HDL RATIO 6.8(H) 0.0 - 4.5 09/24/2023 2:18 PM CDT [facility] VLDL CALCULATION 33 5 - 55 MG/DL 09/24/2023 2:18 PM CDT [facility] LIPID INTERPRETATION 09/24/2023 2:18 PM CDT [facility] Comment: NIH CONCENSUS REPORT RECOMMENDATIONS: ADULT CHILD LOW RISK: CHOLESTEROL <200 <170 TRIGLYCERIDE <150 --- HDL >=60 --- LDL <100 <110 BORDERLINE: CHOLESTEROL 200-239 170-199 TRIGLYCERIDE 150-199 --- HDL 40-59 --- LDL 100-159 110-129 HIGH RISK: CHOLESTEROL >=240 >=200 TRIGLYCERIDE >=200 --- HDL <40 --- LDL >=160 >=130 09/24/2023 8:30 AM CDT Bijan Lord MD LABORATORY Final Result [facility] [address] [place] [address], * COLONOSCOPY GENERIC (12/30/2021) 12/30/2021 us [facility] Scanned SCANNING Final Resu lt from Last 3 Months or Most Recently Relevant to Health Maintenance [place] [address] [address] [place] [address] Care Teams Tooler Relationship Specialty Start Date End Date Leanna Kc FNP [address] [place] [address] [place] [address] PCP - General Nurse Practitioner Family 05/08/19
[2024-04-14 08:43] VITALS: BP 146/78; PULSE 73; RESP 18; TEMP 36.4; O2SAT 100
[2024-04-14] MEDS: LACTATED RINGERS 1,000 ML 150 ML IV CONT (08:53)
--- NOTE | 2024-04-14 09:04 | WPDANESEPPF ---
Anes - Initial Pre Proc Eval Procedure: Operation Date: 04/14/24 09:30 Proposed Procedures p Esophagogastroduodenoscopy - Jake Clarke MD Date/Time: 04/14/24 09:04 Surgeon: Jake Clarke MD Pre Op Diagnosis: Dysphagia Patient Data Age: 63 Gender: F Height: 1.5 m Weight: 59.1 kg Last Vital Signs Temp 36.4 C L 04/14/24 08:43 Pulse 73 04/14/24 08:43 Resp 18 04/14/24 08:43 BP 146/78 H 04/14/24 08:43 Pulse Ox 100 04/14/24 08:43 O2 Del Method Room Air 04/14/24 08:43 Allergies Allergy/AdvReac Type Severity Reaction Status Date / Time doxycycline Allergy Mild MOUTH SORES Verified 04/14/24 08:40 Sulfa (Sulfonamide Allergy Mild MOUTH Verified 04/14/24 08:40 Antibiotics) SWELLING/MOUTH SORES Home Medications ?Medication ?Instructions ?Recorded ?Confirmed ?Type rosuvastatin 10 mg tablet 10 mg PO DAILY 12/21/21 04/14/24 History Quercetin, Vit C, Bromelain 1 cap PO DAILY 12/26/21 04/14/24 History cholecalciferol (vitamin D3) 125 125 mcg PO DAILY 12/26/21 04/14/24 History mcg (5,000 unit) tablet (Vitamin D3) cyanocobalamin (vitamin B-12) 1,000 mcg PO DAILY 12/26/21 04/14/24 History 1,000 mcg tablet (Vitamin B-12) fexofenadine 180 mg tablet 180 mg PO DAILY 12/26/21 04/14/24 History green tea extract 500 mg capsule 500 mg PO DAILY 12/26/21 04/14/24 History selenium 200 mcg capsule 200 mcg PO DAILY 12/26/21 04/14/24 History zinc 50 mg tablet 50 mg PO DAILY 12/26/21 04/14/24 History omeprazole 40 mg capsule,delayed 40 mg PO DAILY #30 caps 02/28/24 04/14/24 Rx release Patient hx anesthesia problems: none Family hx anesthesia problems: none Results Review: All pre-operative results and documents have been reviewed as part of the pre-operative evaluation. [facility] Social History Social History (Reviewed 04/14/24 @ 09:04 by JODI Davis Smoking status: Never smoker Alcohol intake: never Substance use: never Substance use type: does not use Living arrangements: with family Spiritual care concerns: No Comments HLD, asthma, JEOVANY (CPAP) Anes - Eval Final PreProcedure Day of Procedure 04/14/24 09:04 Patient weight: normal Heart: regular rate and rhythm Lungs: normal air movement Airway: Mallampati scale class II Neurological: alert and oriented Last oral intake: >/= 8 hours ASA classification: III Emergent: no Anesthetic plan: proceed Anesthesia type and monitoring: general GIVS and standard monitoring Results Review: All pre-operative results and documents have been reviewed as part of the pre-operative evaluation. Informed Consent: The patient's anesthetic plan and its attendant risks and benefits were discussed with the patient/family/POA. Questions were solicited and answers provided to the satisfaction of the patient/family/POA.
--- NOTE | 2024-04-14 09:26 | PM.HPGS ---
History of Present Illness History of Present Illness Consent: Risks, benefits, and alternatives have been discussed and questions answered. Patient agrees to proceed with procedure. Chief complaint: Dysphagia Narrative: Katie Cotton is a 63 year old female with sensation of food getting stuck, had egd with dilation in 2022 Review of Systems Review of Systems: All systems reviewed & are unremarkable except as noted in HPI and below PMFSH Social History Social History Smoking status: Never smoker Alcohol intake: never Substance use: never Substance use type: does not use Living arrangements: with family Spiritual care concerns: No Meds Home Medications and Allergies Home Medications ?Medication ?Instructions ?Recorded ?Confirmed ?Type rosuvastatin 10 mg tablet 10 mg PO DAILY 12/21/21 04/14/24 History Quercetin, Vit C, Bromelain 1 cap PO DAILY 12/26/21 04/14/24 History cholecalciferol (vitamin D3) 125 125 mcg PO DAILY 12/26/21 04/14/24 History mcg (5,000 unit) tablet (Vitamin D3) cyanocobalamin (vitamin B-12) 1,000 mcg PO DAILY 12/26/21 04/14/24 History 1,000 mcg tablet (Vitamin B-12) fexofenadine 180 mg tablet 180 mg PO DAILY 12/26/21 04/14/24 History green tea extract 500 mg capsule 500 mg PO DAILY 12/26/21 04/14/24 History selenium 200 mcg capsule 200 mcg PO DAILY 12/26/21 04/14/24 History zinc 50 mg tablet 50 mg PO DAILY 12/26/21 04/14/24 History omeprazole 40 mg capsule,delayed 40 mg PO DAILY #30 caps 02/28/24 04/14/24 Rx release Allergies Allergy/AdvReac Type Severity Reaction Status Date / Time doxycycline Allergy Mild MOUTH SORES Verified 04/14/24 08:40 Sulfa (Sulfonamide Allergy Mild MOUTH Verified 04/14/24 08:40 Antibiotics) SWELLING/MOUTH SORES Vital Signs Vital Signs - 24 hr 04/14/24 08:43 Temperature 97.5 F L Pulse Rate 73 Respiratory Rate 18 Blood Pressure 146/78 H Pulse Oximetry 100 Oxygen Delivery Room Air Exam Const: General: comfortable and no acute distress HENMT: Face/Nose/Sinus: Normal nares present Eyes: General: appearance normal, both eyes and all related structures Neck: Neck: no JVD Resp: Auscultation: clear to auscultation bilaterally Cardio: Rate: regular rate Rhythm: regular rhythm GI: Inspection: non-distended GI Palp: Yes Soft to palpation Skin: General skin exam: normal color Neuro: General: gait normal Speech: normal speech Extrem: General: normal to inspection Psych: Mental Status: mental status grossly normal Assessment and Plan Assessment and plan (1) Dysphagia: Code(s): R13.10 - Dysphagia, unspecified Status: Acute Assessment and Plan: egd
[2024-04-14 09:41] VITALS: BP 133/74; PULSE 69; RESP 15; O2SAT 100
[2024-04-14 09:51] VITALS: BP 123/80; PULSE 74; RESP 18; O2SAT 100
[2024-04-14 10:01] VITALS: BP 124/68; PULSE 69; RESP 17; O2SAT 100
== END 2024-04-14 10:11 | disposition home or self-care (01) ==
PROVIDERS: PCP Family Medicine Sports Medicine; Referring Provider Nurse Practitioner; Visit Provider Internal Medicine Gastroenterology
PROC: 0DJ08ZZ Inspection of Upper Intestinal Tract, Via Natural or Artificial Opening Endoscopic (ICD-10-PCS; CPT 43239; principal; 2024-04-14 09:30)
DX: R13.10 Dysphagia, unspecified (principal)
CPT/HCPCS: 43239; 43450; 88305; J2003; J2704; J7120

== ENCOUNTER 2024-12-07 09:51 | Emergency (ER) | payer BC, SELFPAY ==
--- NOTE | ~2024-12-07 | XR_ITS ---
Examination: XR chest 2V Clinical History: cough, sob x2 weeks. hx asthma Comparison: None Technique: PA and Lateral Findings: Cardiomediastinal silhouette normal size and configuration. Lungs clear. No acute bony abnormality. IMPRESSION: 1. No acute cardiopulmonary findings. Reviewed, dictated and finalized at location R.
--- OUTSIDE RECORDS SUMMARY | 2024-12-07 09:53 | XMS_ITS | Clinical Summary ---
Author Organization [facility] Address [address] [facility] [place] [address] Phone Care Team Providers Care Bodily Injury Adjuster Name Role Phone Unavailable Primary Care Provider Unavailabl e Allergies Active Allergy Reactions Criticality Noted Date Comments Doxycycline Unknown 02/08/2024 Medications No known medications Social History Tobacco Use Types Packs/Day Years Used Date Smoking Tobacco: Never Assessed Feeling Safe Answer Date Recorded Are you in a relationship wi th someone who hurts you emotionally and/or physically? 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 Gender Identity Not on file Sexual Orientation [...] Health Maintenance Due Date Last Done Comments FIT-DNA Q 3 years 07/24/2007 FIT/FOBT Q 1 year 07/24/2007 Flex Sig/CT Colonography Q 5 years 07/24/2007 ZOSTER VACCINE (1 of 2) 2012 BREAST CANCER SCREENING 06/08/2019 06/08/19 19, 06/07/2018, 08/28/2016, Additional history exists INFLUENZA VACCINE (#1) 2024 11/19/2019, 2018 COVID-19 Vaccine (2024-2 6 season) 2024 04/28/2020, 03/31/2020 DTAP/TDAP/TD VACCINES (2 - T d or Tdap) 11/15/2031 11/14/2021 COLORECTAL SCREENING 12/31/2031 12/30/2021 Colorectal Cancer Screening 12/31/2031 RSV VACCINE (60+ or ) (1 - 1-dose 75+ series) 2037 Insurance [facility] [id number] PPO
--- OUTSIDE RECORDS SUMMARY | 2024-12-07 09:53 | XMS_ITS | Clinical Summary ---
Author Organization 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 There are [...] compared to prior imaging studies performed at [facility] on 07/01/2013, 10/27/2014 and 08/28/2016. There are scattered areas of fibroglandular density. There is no suspicious abnormality in either breast. Impression: Annual screening mammography is recommended. OVERALL FINAL ASSESSMENT: BI-RADS CATEGORY 1: Negative. us Celia Allen MD IMG MAMMO PROCEDURES Fin al Result from Last 3 Months or Most Recently Relevant to Health Maintenance Insurance [facility] ACCESS [facility] ACCESS DANIEL ACCESS Advance Directives For more information, please contact: [phone] * Full Code (Latest Code Status on File) Date Activated Date Inactivated Comments 07/09/2023 6:33 PM 07/10/2023 5:45 PM Care Teams Digital Measurement Advisor Relationship Specialty Start Date End Date Leanna Kc NP [address] [place] [address] [address] [place], [place] [id number] PCP - General Pediatrics 07/09/23 [place] [id number] [place] [address] Consulting Physician Urology 07/10/23
[2024-12-07 10:01] VITALS: BP 162/87; PULSE 91; RESP 18; TEMP 37; O2SAT 97
--- NOTE | 2024-12-07 10:32 | ED_ITS ---
HPI - URI/Sore Throat General Chief Complaint: Upper Respiratory Infection Stated Complaint: URI Time Seen by Provider: 12/07/24 10:18 Source: patient and RN notes reviewed Mode of arrival: ambulatory Limitations: no limitations History of Present Illness HPI Narrative: Patient presents today complaining of a 1.5-2 week history of cough, headache, chest congestion, sore throat, bilateral ear fullness, shortness of breath. Patient was seen 1 week ago by her PCP who placed her on a 10 day course of Augmentin and prednisone, which she has been taking as prescribed. States symptoms have not improved. She also had a negative strep test at that appointment. Denies fever. History of asthma for which she has been using her inhaler more frequently than normal. She has also been taking Mucinex. Both without improvement. States that Augmentin sometimes does not help with the symptoms and she needs a new antibiotic. Related Data Home Medications ?Medication ?Instructions ?Recorded ?Confirmed ?Last Taken ?Type Quercetin, Vit C, Bromelain 1 cap PO DAILY 12/26/2104/13/24 History cholecalciferol (vitamin D3) 125 125 mcg PO DAILY 11/2804/22/24 04/13/24 History mcg (5,000 unit) tablet (Vitamin D3) cyanocobalamin (vitamin B-12) 1,000 mcg PO DAILY 12/2604/22/24 04/13/24 History 1,000 mcg tablet (Vitamin B-12) zinc 50 mg tablet 50 mg PO DAILY 12/26/2103/3004/13/24 History amoxicillin 875 mg-potassium tablet 12/07/24 Unknown History clavulanate 125 mg tablet loratadine 10 mg tablet (Claritin) 10 mg PO DAILY 11/2612/07/24 Unknown History pantoprazole 20 mg tablet,delayed mg PO 12/07/24 Unkn own History release prednisone 20 mg tablet mg 12/07/24 Unknown History Allergies Allergy/AdvReac Type Severity Reaction Status Date / Time doxycycline Allergy Mild MOUTH SORES Verified 12/07/24 10:02 Sulfa (Sulfonamide Allergy Mild MOUTH Verified 12/07/24 10:02 Antibiotics) SWELLING/MOUTH SORES PMFSH Past Medical History Medical History (Updated 12/07/24 @ 11:06 by Mary Luu, BROACHING MACHINE REPAIRER, ) Asthma Surgical History Surgical History H/O: hysterectomy Family History Family History Grandparent Carcinoma of colon Other Colon polyp Social History Social History Smoking status: Never smoker Alcohol intake: never Substance use: never Substance use type: does not use Living arrangements: with family Spiritual care concerns: No Comments At time of signature, I have reviewed and agree with nursing past medical, surgical, social and family history unless otherwise noted. Please see nursing chart for further information. There is no relevant family history pertinent to the presenting complaint Exam Narrative: GENERAL: Well-appearing, well-nourished, and in no acute distress. HEAD: Normocephalic, atraumatic. EYES: EOMI. No redness or drainage. Conjunctivae normal. ENT: Mucous membranes pink and moist. Nares mildly congested. No rhinorrhea. TMs normal bilaterally. Throat normal. Uvula midline. NECK: Normal AROM. Supple. No lymphadenopathy. CHEST: No respiratory distress. Clear to auscultation. HEART: Regular rate and rhythm. No murmur appreciated. EXTREMITIES: Normal range of motion. No edema. SKIN: Warm, dry, no rash. Capillary refill normal. Normal skin turgor. NEURO: No focal deficits. Alert and oriented x3. Gait steady. PSYCH: Normal affect. No signs of depression or anxiety. Course Course Level of Care: Express Care Visit Vital Signs Vital signs: Vital Signs Temperature 98.6 F 12/07/24 10:01 Pulse Rate 91 12/07/24 10:01 Respiratory Rate 18 12/07/24 10:01 Blood Pressure 162/87 H 12/07/24 10:01 Pulse Oximetry 97 12/07/24 10:01 Oxygen Delivery Room Air 12/07/24 10:01 Temperature 98.6 F 12/07/24 10:01 Pulse Rate 91 12/07/24 10:01 Respiratory Rate 18 12/07/24 10:01 Blood Pressure 162/87 H 12/07/24 10:01 Pulse Oximetry 97 12/07/24 10:01 Oxygen Delivery Room Air 12/07/24 10:01 Reviewed MDM - URI/Sore Throat MDM Narrative Medical decision making narrative: Patient presents today complaining of a 1.5-2 week history of cough, headache, chest congestion, sore throat, bilateral ear fullness, shortness of breath. Patient was seen 1 week ago by her PCP who placed her on a 10 day course of Augmentin and prednisone, which she has been taking as prescribed. States symptoms have not improved. Upon exam, nares mildly congested. Lung auscultation. Chest x-ray negative. Based on patient's illness, duration of symptoms, and history of asthma, will add azithromycin and place patient back on 50mg prednisone, and add Tessalon perles. Will also refill albuterol inhaler. Recommend restarting Mucinex and making sure to intake plenty of water. Vital signs stable. Patient agrees with plan. Anticipatory guidance given. Differential Diagnosis Differential diagnosis: Likely upper respiratory infection, otitis media, sinusitis, viral infection and other (Pneumonia, asthma exacerbation) Imaging Data Radiologist's impression: Findings: Cardiomediastinal silhouette normal size and configuration. Lungs clear. No acute bony abnormality. IMPRESSION: 1. No acute cardiopulmonary findings. Critical Care Time Critical Care Time Critical Care Time: No Discharge Plan Discharge Clinical Impression: Sinusitis Qualifiers: Sinusitis location: unspecified location Chronicity: acute Recurrence: not specified as recurrent Qualified Code(s): J01.90 - Acute sinusitis, unspecified Asthma exacerbation Qualifiers: Asthma severity: unspecified severity Asthma persistence: unspecified Qualified Code(s): J45.901 - Unspecified asthma with (acute) exacerbation Patient Disposition: Home Condition: Stable Instructions: Antibiotic Form, Sinusitis (ED) Additional Instructions: Please continue the Augmentin. Start the azithromycin, prednisone, and Tessalon Perles as prescribed. Use your albuterol inhaler as previously directed. Follow-up with your PCP in 3 days if symptoms are not improving. Go to the ER immediately if symptoms worsen. Your blood pressure was elevated above 120/80 today at Urgent Care. This puts you above the threshold for follow up. Please schedule a followup visit with your personal physician as soon as possible, for further evaluation and treatment. Even blood pressure exceeding 120/80 may indicate pre-hypertension. Patient Language: [place] Prescriptions: New azithromycin 250 mg tablet 250 mg PO DAILY Qty: 6 0RF Rx Instructions: take 500 mg today (day 1), then 250 mg daily on days 2-5. benzonatate 200 mg capsule 200 mg PO TID PRN (Reason: cough) Qty: 20 0RF prednisone 50 mg tablet 50 mg PO DAILY 5 Days Qty: 5 0RF albuterol sulfate 90 mcg/actuation HFA aerosol inhaler 2 inh inhalation Q4-6H PRN (Reason: shortness of breath or wheezing) Qty: 8.5 0RF No Action pantoprazole 20 mg tablet,delayed release (DR/EC) PO loratadine [Claritin] 10 mg tablet 10 mg PO DAILY prednisone 20 mg tablet amoxicillin-pot clavulanate 875-125 mg tablet cyanocobalamin (vitamin B-12) [Vitamin B-12] 1,000 mcg Tablet 1,000 mcg PO DAILY zinc 50 mg Tablet 50 mg PO DAILY cholecalciferol (vitamin D3) [Vitamin D3] 125 mcg (5,000 unit) Tablet 125 mcg PO DAILY Quercetin, Vit C, Bromelain 1 cap PO DAILY Follow-up/Referrals: Joy Carlos DO [Primary Care Provider, Family Practice] Time of Disposition: 11:07
== END 2024-12-07 11:12 | disposition home or self-care (01) ==
PROVIDERS: Emergency Provider Nurse Practitioner; PCP Family Medicine
DX: J01.90 Acute sinusitis, unspecified (principal); J45.901 Unspecified asthma with (acute) exacerbation
CPT/HCPCS: 71046; 99213; G0463

== ENCOUNTER 2025-01-12 14:47 | Outpatient (CLI) | payer BC, SELFPAY ==
--- NOTE | ~2025-01-12 | MM_ITS ---
EXAMINATION: MM screening leona BI w cameron HISTORY: Screening TECHNIQUE: Craniocaudal and mediolateral oblique 3-D tomosynthesis images were obtained and synthetic 2-D images were generated. CAD analysis was submitted and interpreted. COMPARISON: Comparison to multiple prior studies sequentially, with oldest reviewed study dated , 07/19/2020 BREAST PARENCHYMAL COMPOSITION: Not Dense: The breasts are almost entirely fatty. FINDINGS: There is no evidence of suspicious mass, calcification, or architectural distortion to suggest malignancy in either breast. IMPRESSION: 1. No mammographic evidence of malignancy. 2. Recommend routine screening mammography in one year. BI-RADS Category 1: Negative Reviewed, dictated and finalized at location B. CE MACHINE INSTALLER
== END 2025-01-12 14:48 | disposition home or self-care (01) ==
PROVIDERS: PCP Obstetrics & Gynecology Gynecology; Visit Provider Obstetrics & Gynecology Gynecology
DX: Z12.31 Encounter for screening mammogram for malignant neoplasm of breast (principal)
CPT/HCPCS: 77063; 77067